=== PATIENT | female | born 1950 | race Caucasian/White ===

== ENCOUNTER 2020-11-14 03:31 | Emergency (ER) | payer MEDICARE, BC ==
[2020-11-14] MEDS ORDERED: Aspirin 81 MG Tab.Chew PO ONE (03:49)
[2020-11-14] MEDS ORDERED: Nitroglycerin 0.4 MG Tab.SL SL PRN (03:49)
--- NOTE | 2020-11-14 04:04 | EDM.PDOC ---
ED HPI GENERAL MEDICAL PROBLEM - General Chief Complaint: Chest Pain Stated Complaint: SOB Time Seen by Provider: 11/14/20 03:44 Source of Information: Reports: Patient History Limitations: Reports: No Limitations - History of Present Illness INITIAL COMMENTS - FREE TEXT/NARRATIVE: Hali is a 70-year-old female presenting to the ED with acute onset of left- sided chest pain radiating up into the neck and left arm. The pain woke the patient from sleep at around 2 AM this morning. Pain worsens with deep inspiration. It starts predominantly in the lower lateral left chest and again radiates up into the neck and left arm. The patient denies any fever or chills, she has not had any cough or shortness of breath. She denies any flulike symptoms. She denies any nausea or vomiting, diaphoresis, constipation or diarrhea. She does present quite hypertensive with a blood pressure of 198/123. Patient does take a baby aspirin a day. chest Pain Score (Numeric/FACES): 6 - Related Data Allergies Allergy/AdvReac Type Severity Reaction Status Date / Time No Known Allergies Allergy Verified 11/14/20 03:43 Home Meds: Home Meds Alendronate [Fosamax] 35 mg PO TID PRN 09/19/19 [History] Aspirin [Halfprin] 81 mg PO DAILY 09/19/19 [History] Calcium Carb, Citrate/Vit D3 [Calcium + D3 ER Tablet] 1 each PO BID 09/19/19 [History] Calcium Carbonate/Vitamin D3 [Calcium Carb 500 MG] 1 each PO BID 09/19/19 [History] Losartan/Hydrochlorothiazide [Hyzaar 50-12.5 Tablet] 1 each PO DAILY 09/19/19 [History] Multivitamin [Multi-Vitamin Daily] 1 each PO DAILY 09/19/19 [History] Propranolol [Inderal] 40 mg PO BID 09/19/19 [History] atorvaSTATin [Lipitor] 20 mg PO BEDTIME 09/19/19 [History] metFORMIN [Glucophage] 850 mg PO TIDMEALS 09/19/19 [History] Past Medical History HEENT History: Reports: Impaired Vision Cardiovascular History: Reports: High Cholesterol, Hypertension [employer] History: Reports: Endocrine/Metabolic History: Reports: Diabetes, Type II - Infectious Disease History Infectious Disease History: Reports: Chicken Pox, Measles, Mumps - Past Surgical History GI Surgical History: Reports: Colonoscopy Female Surgical History: Reports: Tubal Ligation Musculoskeletal Surgical History: Reports: Shoulder Surgery Other Musculoskeletal Surgeries/Procedures:: rotator cuff x2 right side Oncologic Surgical History: Reports: Biopsy of Breast Social & Family History - Family History Family Medical History: No Pertinent Family History - Tobacco Use Tobacco Use Status *Q: Never Tobacco User - Caffeine Use Caffeine Use: Reports: Coffee ED ROS GENERAL - Review of Systems Review Of Systems: See Below Constitutional: Reports: No Symptoms HEENT: Reports: No Symptoms Respiratory: Reports: Pleuritic Chest Pain Cardiovascular: Reports: Chest Pain, Blood Pressure Problem Endocrine: Reports: No Symptoms GI/Abdominal: Reports: No Symptoms : Reports: No Symptoms Musculoskeletal: Reports: No Symptoms Skin: Reports: No Symptoms Neurological: Reports: No Symptoms Psychiatric: Reports: Anxiety Hematologic/Lymphatic: Reports: No Symptoms Immunologic: Reports: No Symptoms ED EXAM, GENERAL - Physical Exam Exam: See Below Exam Limited By: No Limitations General Appearance: Alert, Moderate Distress Eye Exam: Bilateral Eye: EOMI, PERRL Head: Atraumatic, Normocephalic Neck: Normal Inspection, Supple Respiratory/Chest: No Respiratory Distress, Lungs Clear, Normal Breath Sounds, Other (Mild tenderness of the left lower chest to palpation.) Cardiovascular: Normal Peripheral Pulses, Regular Rate, Rhythm, No Edema, No Gallop, No JVD, No Murmur Peripheral Pulses: 2+: Radial (L), Radial (R), Posterior Tibial (L), Posterior Tibial (R) GI/Abdominal: Normal Bowel Sounds, Soft, Non-Tender. No: Guarding, Rigid, Rebound Extremities: Normal Inspection, Normal Range of Motion, No Pedal Edema Neurological: Alert, Oriented, Normal Cognition, No Motor/Sensory Deficits Psychiatric: Normal Affect, Anxious Skin Exam: Warm, Dry Lymphatic: No Adenopathy #1 Interpretation EKG Date: 11/14/20 Time: 03:38 Rhythm: NSR Rate (Beats/Min): 70 [place]: Normal P-Wave: Present QRS: Normal ST-T: Other (Nonspecific ST-T changes.) QT: Normal Comparison: NA - No Prior EKG Course - Vital Signs Last Recorded V/S: Last Vital Signs Temp 36.4 C 11/14/20 03:50 Pulse 71 11/14/20 03:50 Resp 21 H 11/14/20 03:50 BP 198/123 H 11/14/20 03:52 Pulse Ox 98 11/14/20 03:50 - Orders/Labs/Meds Orders: Active Orders 24 hr Category Date Time Status EKG Documentation Completion [RC] ASDIRECTED Care 11/14/20 03:45 Ordered Chest 2V [CR] Stat Exams 11/14/20 03:58 Ordered C-REACTIVE PROTEIN [CHEM] Stat Lab 11/14/20 03:45 Ordered CBC WITH AUTO DIFF [HEME] Stat Lab 11/14/20 03:45 Ordered COMPREHENSIVE METABOLIC PN,CMP [CHEM] Stat Lab 11/14/20 03:45 Ordered TROPONIN I [CHEM] Stat Lab 11/14/20 03:45 Ordered Nitroglycerin [Nitrostat] Med 11/14/20 03:49 Ordered 0.4 mg SL Q5M PRN EKG 12 Lead [EK] Routine Ther 11/14/20 03:45 Ordered Medication Orders Nitroglycerin (Nitroglycerin 0.4 Mg Tab.Sl) 0.4 mg SL Q5M PRN PRN Reason: Chest Pain Last Admin: 11/14/20 03:52 Dose: 0.4 mg Documented by: RICKI Meds: Medications Generic Name Dose Route Start Last Admin Trade Name Freq PRN Reason Stop Dose Admin Nitroglycerin 0.4 mg 11/14/20 03:49 11/14/20 03:52 Nitroglycerin 0.4 Mg Tab.Sl SL 0.4 mg Q5M PRN Administration Chest Pain Discontinued Medications Generic Name Dose Route Start Last Admin Trade Name Freq PRN Reason Stop Dose Admin Aspirin 324 mg 11/14/20 03:49 11/14/20 03:52 Aspirin 81 Mg Tab.Chew PO 11/14/20 03:50 324 mg ONETIME ONE Administration - Radiology Interpretation Free Text/Narrative:: I reviewed the two-view chest x-ray showing normal cardiac silhouette. There is no acute infiltrates. There is a large amount of colonic gas noted under the diaphragm in the left upper quadrant. No free air. - Re-Assessments/Exams Free Text/Narrative Re-Assessment/Exam: 11/14/20 04:04 patient presents with left-sided chest pain that started at 2 AM and woke her from sleep. She presents quite hypertensive with a pressure of 198/123. The patient was given 4 aspirin to chew and sublingual nitroglycerin. This brought her pain from an 8 out of 10 down to a 3 out of 10 and brought her blood pressure down to 128/79. EKG was reviewed showing normal sinus rhythm with a rate of 70 bpm. She does have some ST flattening in the lateral leads I, aVL and V4. Patient does have a history significant for diabetes type 2, hypertension, osteoporosis and GERD. 11/14/20 04:24 I reviewed the initial labs within normal CBC. Her comprehensive metabolic panel shows a sodium of 133 and a glucose of 174 but otherwise is unremarkable. Her troponin is negative. Her C-reactive protein is negative. Again the EKG shows some nonspecific ST-T changes in the anterior and lateral leads without any previous EKG to compare. Her HEART score is 5 putting her at moderate risk of a major acute coronary event 12 to 16.6%. If her delta troponin is going up we will likely transfer her to either [place] or [place] for further care. Unfortunately there are no ICU beds available here [facility] so admission here is not possible. Other concern is that this may be malignant h ypertension or hypertensive emergency causing her symptoms as they significantly improved after the sublingual nitro which not only would dilate coronaries but also significantly reduced her blood pressure back into normal range. 11/14/20 04:42 after discussing options with the patient, I recommend that we transfer her to either [facility] or to one of the hospitals in [place] for rule out [place]. He does have significant risk for coronary artery disease and acute coronary syndrome. I contacted [facility] who does have room availability and I will be discussing the case with the hospitalist [employer] manager to arrange for the care of the patient. 11/14/20 04:59 I did discuss the case with Dr. Dillard who accepts the patient in transfer to the telemetry unit. We are going to initiate heparin as this could be unstable angina. I did add a D-dimer, however, I do not think that this is likely going to be a pulmonary emboli. 11/14/20 05:35 D-dimer is negative at 303. Covid test is also negative. Departure - Departure Time of Disposition: 05:37 Disposition: DC/Tfer to Acute Hospital 02 Reason for Transfer *Q: Other (No beds available in the ICU to admit the patient here so we have arranged admission elsewhere for rule out RI.) Clinical Impression: Unstable angina Hypertension Qualifiers: Hypertension type: essential hypertension Qualified Code(s): I10 - Essential (primary) hypertension Hyperlipidemia Qualifiers: Hyperlipidemia type: unspecified Qualified Code(s): E78.5 - Hyperlipidemia, unspecified Diabetes type 2, controlled Qualifiers: Diabetes mellitus [facility] insulin use: without emt intermediate use Diabetes [facility] complication status: without complication Qualified Code(s): E11.9 - Type 2 diabetes mellitus without complications Referrals: Molly Pretty CNM [Primary Care Provider] - Sepsis Event Note (ED) - Evaluation Sepsis Screening Result: No Definite Risk - Focused Exam Vital Signs: Vital Signs Temp Pulse Resp BP BP Pulse Ox 11/14/20 03:52 198/123 H 11/14/20 03:50 36.4 C 71 21 H 198/123 H 98 11/14/20 03:46 36.4 C 71 21 H 198/123 H 98 - Problem List & Annotations (1) Diabetes type 2, controlled SNOMED Code(s): 37594442, 358681013 Code(s): E11.9 - TYPE 2 DIABETES MELLITUS WITHOUT COMPLICATIONS Status: Chronic Priority: Medium Current Visit: Yes Qualifiers: Diabetes mellitus emt intermediate insulin use: without emt intermediate use Diabetes mellitus complication status: without complication Qualified Code(s): E11.9 - Type 2 diabetes mellitus without complications (2) Hyperlipidemia SNOMED Code(s): 22945003 Code(s): E78.5 - HYPERLIPIDEMIA, UNSPECIFIED Status: Chronic Priority: Medium Current Visit: Yes Qualifiers: Hyperlipidemia type: unspecified Qualified Code(s): E78.5 - Hyperlipidemia, unspecified (3) Hypertension SNOMED Code(s): 46087059 Code(s): I10 - ESSENTIAL (PRIMARY) HYPERTENSION Status: Chronic Priority: High Current Visit: Yes Qualifiers: Hypertension type: essential hypertension Qualified Code(s): I10 - Essential (primary) hypertension (4) Unstable angina SNOMED Code(s): 5805332, 932325843 Code(s): I20.0 - UNSTABLE ANGINA Status: Acute Priority: High Current Visit: Yes - Problem List Review Problem List Initiated/Reviewed/Updated: Yes - My Orders Last 24 Hours: My Active Orders 11/14/20 03:45 EKG Documentation Completion [RC] ASDIRECTED C-REACTIVE PROTEIN [CHEM] Stat CBC WITH AUTO DIFF [HEME] Stat COMPREHENSIVE METABOLIC PN,CMP [CHEM] Stat TROPONIN I [CHEM] Stat EKG 12 Lead [EK] Routine 11/14/20 03:49 Nitroglycerin [Nitrostat] 0.4 mg SL Q5M PRN 11/14/20 03:58 Chest 2V [CR] Stat - Assessment/Plan Last 24 Hours: My Active Orders 11/14/20 03:45 EKG Documentation Completion [RC] ASDIRECTED C-REACTIVE PROTEIN [CHEM] Stat CBC WITH AUTO DIFF [HEME] Stat COMPREHENSIVE METABOLIC PN,CMP [CHEM] Stat TROPONIN I [CHEM] Stat EKG 12 Lead [EK] Routine 11/14/20 03:49 Nitroglycerin [Nitrostat] 0.4 mg SL Q5M PRN 11/14/20 03:58 Chest 2V [CR] Stat
[2020-11-14] MEDS ORDERED: Heparin Sodium/D5W 25,000 UNITS/500 ML BAG IV SCH (04:45)
--- NOTE | 2020-11-16 09:08 | CR ---
CHEST: 2 view CLINICAL HISTORY:Chest pain COMPARISON:None FINDINGS: Heart size and pulmonary vascular normal. No infiltrates are seen. There is a defect in the lateral right sixth rib which appears to be from old fracture and callus formation. There are atherosclerotic changes in the aorta. Impression: No acute cardiopulmonary process Old right sixth rib fracture.
== END 2020-11-14 06:10 ==
LOC: JP.ED 03:31
DX: I20.0 Unstable angina (principal); I10 Essential (primary) hypertension; E78.5 Hyperlipidemia, unspecified; E11.9 Type 2 diabetes mellitus without complications; E78.00 Pure hypercholesterolemia, unspecified; Z79.82 Long term (current) use of aspirin; Z79.899 Other long term (current) drug therapy; Z20.822 Contact with and (suspected) exposure to COVID-19
CPT/HCPCS: 36415; 71046; 71046-26; 80053; 84484; 85025; 85379; 86140; 93005; 93010; 96365; 99285; 99285-25; A9270-GY; J1644; U0002

== ENCOUNTER 2021-12-14 07:00 | Day surgery (SDC) | payer MEDICARE, BC ==
[2021-12-14] MEDS ORDERED: Propofol 200 MG/20 ML SDV ONE (07:06)
[2021-12-14] MEDS ORDERED: Midazolam 1 MG/ML 2 ML SDV ONE (07:06)
[2021-12-14] MEDS ORDERED: fentaNYL 100 MCG/2 ML SDV ONE (07:06)
[2021-12-14] MEDS ORDERED: Dextrose 5%-Lactated Ringers 1,000 ML IV SCH (07:30)
== END 2021-12-14 09:44 | disposition home or self-care (01) ==
LOC: JP.SDS 07:00
PROVIDERS: ATTEND Surgery
DX: Z12.11 Encounter for screening for malignant neoplasm of colon (principal); D12.8 Benign neoplasm of rectum; K64.9 Unspecified hemorrhoids; I10 Essential (primary) hypertension; E78.5 Hyperlipidemia, unspecified; E11.9 Type 2 diabetes mellitus without complications; Z80.0 Family history of malignant neoplasm of digestive organs
CPT/HCPCS: 88305; J2250; J2704; J3010; J7121

== ENCOUNTER 2023-12-18 06:19 | Day surgery (SDC) | payer MEDICARE, BC ==
[2023-12-18 06:59] LABS: WHITE BLOOD CELL COUNT,WBC 10.2 K/uL (3.2-11.0)
[2023-12-18 07:00] LABS: HEMOGLOBIN 15.9 g/dL (11.2-15.5)
[2023-12-18 07:03] LABS: A/G RATIO 1.1 (1.2-2.2); ALANINE AMINOTRANSFERASE,ALT 33 U/L (12-78); ALBUMIN 4.3 g/dL (3.4-5.0); ALKALINE PHOSPHATASE 62 U/L (46-116); ASPARTATE AMNIOTRANSFERASE,AST 17 U/L (15-37); BILIRUBIN TOTAL 0.9 mg/dL (0.2-1.0); BLOOD UREA NITROGEN,BUN 10 mg/dL (7-18); CALCIUM 9.5 mg/dL (8.5-10.1); CARBON DIOXIDE,CO2 27 mmol/L (21-32); CHLORIDE,CL 93 mmol/L (100-108); CREATININE 0.9 mg/dL (0.6-1.0); EST CRCL DRUG DOSING (CG) 42.64 mL/min; ESTIMATED GFR 68 mL/min (>60); GLUCOSE RANDOM 171 mg/dL (74-106); PROTEIN TOTAL,TP 8.1 g/dL (6.4-8.2); SODIUM,NA 131 mmol/L (140-148)
[2023-12-18] MEDS ORDERED: fentaNYL 50 MCG/ML SDV ONE (07:33)
[2023-12-18] MEDS ORDERED: Propofol 200 MG/20 ML SDV ONE (07:33)
[2023-12-18] MEDS: Lactated Ringers 1,000 ML IV SCH (09:06)
== END 2023-12-18 09:30 | disposition home or self-care (01) ==
LOC: JP.SDS 06:19
PROVIDERS: ATTEND Student in an Organized Health Care Education/Training Program
DX: Z12.11 Encounter for screening for malignant neoplasm of colon (principal); D12.0 Benign neoplasm of cecum; D12.3 Benign neoplasm of transverse colon; I10 Essential (primary) hypertension; K21.9 Gastro-esophageal reflux disease without esophagitis
CPT/HCPCS: 36415; 45380; 80053; 85027; 88305; 93005; J2704; J3010; J7120

== ENCOUNTER 2024-05-17 15:18 | Emergency (ER) | payer MEDICARE, BC ==
[2024-05-17] MEDS: Iopamidol 755 Mg/ML 100 ML Bottle IV ONE (15:36)
[2024-05-17] MEDS: Sodium Chloride 0.9% 100 ML IV SCH (15:36)
[2024-05-17] MEDS: Sodium Chloride 0.9% 10 ML Syringe FLUSH PRN (15:36)
[2024-05-17 15:52] LABS: BASOPHILS ABSOLUTE AUTO 0.05 K/uL (0.00-0.10); BASOPHILS PERCENT AUTO 0.8 % (0.1-1.3); EOSINOPHILS ABSOLUTE AUTO 0.19 K/uL (0.00-0.40); EOSINOPHILS PERCENT AUTO 3.1 % (0.0-5.4); HEMATOCRIT 33.2 % (34.3-46.0); HEMOGLOBIN 12.1 g/dL (11.2-15.5); IMMATURE GRAN ABSOLUTE AUTO 0.04 K/uL (0.00-0.23); IMMATURE GRAN PERCENT AUTO 0.6 % (0.0-0.7); LYMPHOCYTES ABSOLUTE AUTO 1.55 K/uL (0.8-3.3); MEAN CORPUSCULAR HEMOGLOBIN 30.6 pg (31.6-35.5); MEAN CORPUSCULAR HGB CONC 36.4 g/dL (31.6-35.5); MEAN CORPUSCULAR VOLUME 83.8 fL (81.4-99.0); MONOCYTES ABSOLUTE AUTO 0.55 K/uL (0.20-0.90); MONOCYTES PERCENT AUTO 8.9 % (3.3-12.6); NEUTROPHILS ABSOLUTE AUTO 3.83 K/uL (1.0-7.6); NEUTROPHILS PERCENT AUTO 61.6 % (40.0-78.1); PLATELET COUNT,PLT 236 K/uL (130-375); RED BLOOD CELL COUNT 3.96 M/uL (3.77-5.24); WHITE BLOOD CELL COUNT,WBC 6.2 K/uL (3.2-11.0)
[2024-05-17 16:12] LABS: INR 1.2; PROTHROMBIN TIME 12.3 sec (9.2-10.6); PTT,PARTIAL THROMBOPLSTIN TIME 26.1 sec (21.8-27.3)
[2024-05-17 16:16] LABS: A/G RATIO 1.3 (1.2-2.2); ALANINE AMINOTRANSFERASE,ALT 21 U/L (12-78); ALBUMIN 3.5 g/dL (3.4-5.0); ALKALINE PHOSPHATASE 39 U/L (46-116); ASPARTATE AMNIOTRANSFERASE,AST 11 U/L (15-37); BILIRUBIN TOTAL 0.6 mg/dL (0.2-1.0); BLOOD UREA NITROGEN,BUN 9 mg/dL (7-18); CALCIUM 8.6 mg/dL (8.5-10.1); CARBON DIOXIDE,CO2 26 mmol/L (21-32); CHLORIDE,CL 88 mmol/L (100-108); CREATININE 0.9 mg/dL (0.6-1.0); EST CRCL DRUG DOSING (CG) 42.64 mL/min; ESTIMATED GFR 68 mL/min (>60); GLUCOSE RANDOM 114 mg/dL (74-106); POTASSIUM,K 3.9 mmol/L (3.6-5.2); PROTEIN TOTAL,TP 6.2 g/dL (6.4-8.2); SODIUM,NA 122 mmol/L (140-148); TROPONIN I HIGH SENSITIVITY 4.4 pg/mL (<=60.3)
[2024-05-17 16:30] LABS: ANION GAP 11.9 mmol/L (5.0-14.0)
[2024-05-17] MEDS: Clopidogrel 75 MG Tab PO ONE (17:27)
== END 2024-05-17 17:30 | disposition home or self-care (01) ==
LOC: JP.ED 15:18
DX: G45.9 Transient cerebral ischemic attack, unspecified (principal); I10 Essential (primary) hypertension; E78.00 Pure hypercholesterolemia, unspecified; E11.9 Type 2 diabetes mellitus without complications; Z79.82 Long term (current) use of aspirin; Z79.84 Long term (current) use of oral hypoglycemic drugs; Z79.899 Other long term (current) drug therapy
CPT/HCPCS: 36415; 70450; 70496; 70498; 80053; 84484; 85025; 85610; 85730; 93005; 99285; A9270; J3490; Q9967

== ENCOUNTER 2024-05-27 12:20 | Emergency (ER) | payer MEDICARE, BC ==
[2024-05-27 14:00] LABS: A/G RATIO 1.5 (1.2-2.2); ALANINE AMINOTRANSFERASE,ALT 12 U/L (12-78); ALBUMIN 4.1 g/dL (3.4-5.0); ALKALINE PHOSPHATASE 41 U/L (46-116); ANION GAP 15.2 mmol/L (5.0-14.0); ASPARTATE AMNIOTRANSFERASE,AST 16 U/L (15-37); BILIRUBIN TOTAL 0.9 mg/dL (0.2-1.0); BLOOD UREA NITROGEN,BUN 11 mg/dL (7-18); CALCIUM 9.3 mg/dL (8.5-10.1); CARBON DIOXIDE,CO2 27 mmol/L (21-32); CHLORIDE,CL 88 mmol/L (100-108); CREATININE 0.8 mg/dL (0.6-1.0); EST CRCL DRUG DOSING (CG) 47.97 mL/min; ESTIMATED GFR 78 mL/min (>60); GLUCOSE RANDOM 118 mg/dL (74-106); HEMATOCRIT 35.6 % (34.3-46.0); HEMOGLOBIN 13.1 g/dL (11.2-15.5); MEAN CORPUSCULAR HEMOGLOBIN 30.5 pg (31.6-35.5); MEAN CORPUSCULAR HGB CONC 36.8 g/dL (31.6-35.5); MEAN CORPUSCULAR VOLUME 82.8 fL (81.4-99.0); POTASSIUM,K 4.2 mmol/L (3.6-5.2); PROTEIN TOTAL,TP 6.9 g/dL (6.4-8.2); RED BLOOD CELL COUNT 4.3 M/uL (3.77-5.24); SODIUM,NA 126 mmol/L (140-148); WHITE BLOOD CELL COUNT,WBC 6.1 K/uL (3.2-11.0)
[2024-05-27 14:24] LABS: APPEARANCE,URINE CLEAR (CLEAR); BILIRUBIN,URINE NEGATIVE (NEGATIVE); COLOR,URINE YELLOW (YELLOW); GLUCOSE,URINE NEGATIVE (NEGATIVE); KETONES,URINE TRACE mg/dL (NEGATIVE); LEUKOCYTE ESTERASE,URINE TRACE (NEGATIVE); NITRITE,URINE NEGATIVE (NEGATIVE); OCCULT BLOOD,URINE TRACE-LYSED (NEGATIVE); PH,URINE 7.5 (5.0-8.0); PROTEIN,URINE NEGATIVE (NEGATIVE); UROBILINOGEN,URINE 0.2 EU/dL (0.2-1.0)
[2024-05-27 14:31] LABS: AMORPHOUS SEDIMENT,URINE NOT SEEN; BACTERIA,URINE NOT SEEN; EPITHELIAL CELLS,URINE RARE; MUCUS,URINE RARE; WBC,URINE 0-5 (0-5)
[2024-05-27 16:36] LABS: AMPHETAMINES SCREEN, URINE NEGATIVE (NEGATIVE); BARBITURATE SCREEN,URINE NEGATIVE (NEGATIVE); BENZODIAZEPINES SCREEN,URINE NEGATIVE (NEGATIVE); METHADONE SCREEN, URINE NEGATIVE (NEGATIVE); METHAMPHETAMINES SCREEN, URINE NEGATIVE (NEGATIVE); OXYCODONE SCREEN,URINE NEGATIVE (NEGATIVE); PROPOXYPHENE SCREEN,URINE NEGATIVE (NEGATIVE); THC SCREEN,URINE 50 NG/ML NEGATIVE (NEGATIVE)
== END 2024-05-27 17:33 | disposition home or self-care (01) ==
LOC: JP.ED 12:20
DX: G45.9 Transient cerebral ischemic attack, unspecified (principal); I10 Essential (primary) hypertension; E78.00 Pure hypercholesterolemia, unspecified; E11.9 Type 2 diabetes mellitus without complications; Z79.82 Long term (current) use of aspirin; Z79.84 Long term (current) use of oral hypoglycemic drugs; Z79.899 Other long term (current) drug therapy
CPT/HCPCS: 36415; 70450; 70450-26; 70551; 70551-26; 80053; 80305-QW; 81001; 85027; 99284; 99285

== ENCOUNTER 2024-06-30 18:40 | Emergency (ER) | payer MEDICARE, BC ==
[2024-06-30] MEDS ORDERED: Sodium Chloride 0.9% 10 ML Syringe FLUSH PRN (18:46)
[2024-06-30 19:02] LABS: BASOPHILS ABSOLUTE AUTO 0.07 K/uL (0.00-0.10); BASOPHILS PERCENT AUTO 1.2 % (0.1-1.3); EOSINOPHILS ABSOLUTE AUTO 0.23 K/uL (0.00-0.40); HEMATOCRIT 36.2 % (34.3-46.0); HEMOGLOBIN 12.7 g/dL (11.2-15.5); IMMATURE GRAN ABSOLUTE AUTO 0.03 K/uL (0.00-0.23); IMMATURE GRAN PERCENT AUTO 0.5 % (0.0-0.7); LYMPHOCYTES ABSOLUTE AUTO 1.67 K/uL (0.8-3.3); LYMPHOCYTES PERCENT AUTO 28.7 % (11.4-47.7); MEAN CORPUSCULAR HEMOGLOBIN 30.7 pg (31.6-35.5); MEAN CORPUSCULAR HGB CONC 35.1 g/dL (31.6-35.5); MEAN CORPUSCULAR VOLUME 87.4 fL (81.4-99.0); MONOCYTES ABSOLUTE AUTO 0.53 K/uL (0.20-0.90); MONOCYTES PERCENT AUTO 9.1 % (3.3-12.6); NEUTROPHILS ABSOLUTE AUTO 3.28 K/uL (1.0-7.6); NEUTROPHILS PERCENT AUTO 56.5 % (40.0-78.1); PLATELET COUNT,PLT 235 K/uL (130-375); RED BLOOD CELL COUNT 4.14 M/uL (3.77-5.24); WHITE BLOOD CELL COUNT,WBC 5.8 K/uL (3.2-11.0)
[2024-06-30 19:21] LABS: INR 1.2; PROTHROMBIN TIME 11.7 sec (9.2-10.6); PTT,PARTIAL THROMBOPLSTIN TIME 24.7 sec (21.8-27.3)
[2024-06-30 19:22] LABS: BASE EXCESS ARTERIAL -0.2 mm/L; BICARBONATE,ARTERIAL 21.8 mmol/L (22.0-26.0); CARBOXYHEMOGLOBIN 2.9 % (0.0-1.6); METHEMOGLOBIN 0.7 %; O2 SATURATION ARTERIAL 98.8 % (95.0-98.0); OXYHEMOGLOBIN 95.2 %; TOTAL HEMOGLOBIN 13.1 g/dL (12.0-16.0)
[2024-06-30 19:29] LABS: A/G RATIO 1.3 (1.2-2.2); ALANINE AMINOTRANSFERASE,ALT 28 U/L (12-78); ALBUMIN 3.9 g/dL (3.4-5.0); ALKALINE PHOSPHATASE 43 U/L (46-116); ANION GAP 15.6 mmol/L (5.0-14.0); ASPARTATE AMNIOTRANSFERASE,AST 15 U/L (15-37); BILIRUBIN TOTAL 0.4 mg/dL (0.2-1.0); BLOOD UREA NITROGEN,BUN 12 mg/dL (7-18); CALCIUM 9.5 mg/dL (8.5-10.1); CARBON DIOXIDE,CO2 27 mmol/L (21-32); CHLORIDE,CL 94 mmol/L (100-108); EST CRCL DRUG DOSING (CG) 38.37 mL/min; ESTIMATED GFR 60 mL/min (>60); GLUCOSE RANDOM 163 mg/dL (74-106); POTASSIUM,K 4.6 mmol/L (3.6-5.2); PROTEIN TOTAL,TP 6.8 g/dL (6.4-8.2); SODIUM,NA 132 mmol/L (140-148)
[2024-06-30] MEDS: Iopamidol 755 Mg/ML 100 ML Bottle IV SCH (19:37)
[2024-06-30] MEDS: Sodium Chloride 0.9% 60 ML IV SCH (19:37)
== END 2024-06-30 21:00 | disposition home or self-care (01) ==
LOC: JP.ED 18:40
DX: R47.89 Other speech disturbances (principal); E78.00 Pure hypercholesterolemia, unspecified; I10 Essential (primary) hypertension; E11.9 Type 2 diabetes mellitus without complications; Z79.84 Long term (current) use of oral hypoglycemic drugs; Z79.899 Other long term (current) drug therapy; Z79.82 Long term (current) use of aspirin
CPT/HCPCS: 36415; 36600; 70450; 70496; 70498; 80053; 82803; 84484; 85025; 85610; 85730; 93005; 99285; J3490; Q9967; 82947

== ENCOUNTER 2024-12-19 06:11 | Day surgery (SDC) | payer MEDICARE, BC ==
[2024-12-19] MEDS ORDERED: fentaNYL 50 MCG/ML SDV ONE (06:48)
[2024-12-19] MEDS ORDERED: Propofol 200 MG/20 ML SDV ONE ×2 (06:48)
[2024-12-19] MEDS: Lactated Ringers 1,000 ML IV SCH (07:30)
== END 2024-12-19 09:20 | disposition home or self-care (01) ==
LOC: JP.SDS 06:11
PROVIDERS: ATTEND Surgery
DX: Z12.11 Encounter for screening for malignant neoplasm of colon (principal); D12.0 Benign neoplasm of cecum
CPT/HCPCS: 00811; 45390; 88305; J2704; J3010; J7120